=== PATIENT | male | born 1960 | race Asian ===

== ENCOUNTER 2017-04-11 14:22 | Inpatient (IN) | payer MEDICAID, OTHER ==
[~2017-04-11] VITALS: Ht 167.6 cm; Wt 69.9 kg
[2017-04-11] MEDS ORDERED: AMLO-511 PO (15:23)
[2017-04-11] MEDS ORDERED: LEVE500T53 PO (15:23)
[2017-04-11] MEDS ORDERED: IBUP-1547 PO (15:23)
[2017-04-11] MEDS ORDERED: LAMO100 PO (15:23)
[2017-04-11] MEDS ORDERED: ASPI-556 PO (15:23)
[2017-04-11] MEDS ORDERED: VITAD1000 PO (15:23)
[2017-04-11] MEDS ORDERED: BACL10TA PO (15:23)
[2017-04-11] MEDS ORDERED: CARV12 PO (15:23)
[2017-04-11] MEDS ORDERED: BENA20 PO (15:23)
[2017-04-11 17:26] LABS: BASOPHILS % (AUTO) 0.5 % (0.0-2.0); EOSINOPHILS % (AUTO) 3.8 % (1.0-6.0); HEMATOCRIT 52.7 % (41-53); HEMOGLOBIN 17.3 g/dL (13.5-17.5); LYMPHOCYTES # (AUTO) 2.2 K/uL (1.0-4.8); LYMPHOCYTES % (AUTO) 23.5 % (22.0-44.0); MEAN CORPUSCULAR HEMOGLOBIN 25.3 pg (26.0-34.0); MEAN CORPUSCULAR HGB CONC 32.8 G/dL (31.0-37.0); MEAN CORPUSCULAR VOLUME 77 fL (80-100); MONOCYTES # (AUTO) 0.6 K/uL (0.1-1.0); MONOCYTES % (AUTO) 6.5 % (2.0-9.0); NEUTROPHILS # (AUTO) 6.2 K/uL (1.8-7.7); NEUTROPHILS % (AUTO) 65.7 % (40.0-70.0); PLATELET COUNT (AUTO) 242 K/uL (150-450); RED BLOOD CELL COUNT(AUTO) 6.83 MIL/uL (4.50-5.90); RED CELL DISTRIBUTION WIDTH 13.9 % (11.5-14.5); WHITE BLOOD COUNT (AUTO) 9.5 K/uL (4.5-11.0)
[2017-04-11 17:33] LABS: ANION GAP 11 mmol/L (8-16); CALCIUM, TOTAL 9.9 mg/dL (8.8-10.5); CARBON DIOXIDE 25 mmol/L (22-29); CHLORIDE 105 mmol/L (98-107); CREATININE 1.14 mg/dL (0.60-1.30); GLOMERULAR FILTR. RATE CALC > 60 mL/min (>60); POTASSIUM 3.8 mmol/L (3.5-5.1); SODIUM SERUM 141 mmol/L (136-145); UREA NITROGEN, BLOOD 22 mg/dL (7-18)
[2017-04-11 17:40] LABS: ALANINE AMINOTRANSFERASE 18 U/L (12-78); ALBUMIN 3.5 g/dL (3.4-5.0); ASPARTATE AMINOTRANSFERASE 15 U/L (15-37); BILIRUBIN,TOTAL 0.7 mg/dL (0.1-1.0); TOTAL PROTEIN, SERUM 8.3 g/dL (6.4-8.2)
[2017-04-11 18:04] LABS: RBC MORPHOLOGY COMMENT ABNORMAL RBC MORPH
[2017-04-11] MEDS ORDERED: ZOLPIDEM TARTRATE 10 MG TABLET PO PRN (20:00)
[2017-04-11] MEDS ORDERED: HALOPERIDOL 5 MG TABLET PO PRN (20:00)
[2017-04-11] MEDS ORDERED: LORazepam 2 MG TABLET PO PRN (20:00)
[2017-04-11 21:40] VITALS: BP 116/80
[2017-04-11] MEDS ORDERED: PNEUMOCOCCAL VACCINE POLYVALENT 0.5 ML VIAL [PPSV23] IM ONE (23:30)
[2017-04-12 07:17] VITALS: BP 120/72
[2017-04-12 09:31] VITALS: BP 150/96
[2017-04-12] MEDS ORDERED: ALBUTEROL SULFATE HFA 90 MCG/PUFF 8 GM INHALER IH PRN (09:45)
[2017-04-12] MEDS ORDERED: BENZOCAINE/MENTHOL LOZENGE [8 LOZENGES/PACKET] MM PRN (09:45)
[2017-04-12] MEDS ORDERED: BACITRACIN 28.4 GM OINTMENT TP PRN (09:45)
[2017-04-12] MEDS ORDERED: PETROLATUM,WHITE 71 GM JELLY TP PRN (09:45)
[2017-04-12] MEDS ORDERED: LOPERAMIDE HCL 2 MG CAPSULE PO PRN (09:45)
[2017-04-12] MEDS ORDERED: CloNIDine HCL 0.1 MG TABLET PO PRN (09:45)
[2017-04-12] MEDS ORDERED: MAG HYDROX/AL HYDROX/SIMETH ES 30 ML SUSPENSION UDCUP PO PRN (09:45)
[2017-04-12] MEDS ORDERED: MAGNESIUM HYDROXIDE SUSPENSION 30 ML UDCUP PO PRN (09:45)
[2017-04-12] MEDS ORDERED: ONDANSETRON HCL 4 MG TABLET PO PRN (09:45)
[2017-04-12] MEDS ORDERED: ACETAMINOPHEN 325 MG TABLET PO PRN (09:45)
[2017-04-12] MEDS: ASPIRIN 81 MG EC TABLET PO SCH (10:29)
[2017-04-12] MEDS: LevETIRAcetam 500 MG TABLET PO SCH ×3 (10:29→16:40)
[2017-04-12] MEDS: BENAZEPRIL HCL 20 MG TABLET PO SCH (10:29)
[2017-04-12] MEDS: CHOLECALCIFEROL (VIT D3) 1,000 UNITS TABLET PO SCH (10:29)
[2017-04-12] MEDS: AmLODIPine BESYLATE 5 MG TABLET PO SCH (10:29)
[2017-04-12 11:22] VITALS: BP 115/75
[2017-04-12] MEDS: BACLOFEN 10 MG TABLET PO SCH ×2 (11:23→16:41)
[2017-04-12 16:28] VITALS: BP 112/61
[2017-04-12] MEDS: CARVEDILOL 12.5 MG TABLET PO SCH (18:00)
[2017-04-12] MEDS: IBUPROFEN 600 MG TABLET PO PRN (19:12)
[2017-04-13 06:52] VITALS: BP 118/78
[2017-04-13 08:02] LABS: APPEARANCE,URINE CLEAR (CLEAR); GLUCOSE, URINE (UA) NEGATIVE (NEGATIVE); KETONES,URINE NEGATIVE (NEGATIVE); LEUKOCYTE ESTERASE ,URINE NEGATIVE (NEGATIVE); OCCULT BLOOD,URINE NEGATIVE (NEGATIVE); PROTEIN,URINE NEGATIVE (NEGATIVE)
[2017-04-13 08:05] LABS: ADD UA MICROSCOPIC NO
[2017-04-13 08:30] VITALS: BP 135/88
[2017-04-13] MEDS: DOCUSATE SODIUM 100 MG CAPSULE PO SCH (10:00)
[2017-04-13] MEDS: CARVEDILOL 12.5 MG TABLET PO SCH ×2 (10:00→17:09)
[2017-04-13] MEDS: ASPIRIN 81 MG EC TABLET PO SCH (10:00)
[2017-04-13] MEDS: BENAZEPRIL HCL 20 MG TABLET PO SCH (10:01)
[2017-04-13] MEDS: OMEPRAZOLE 20 MG CAPSULE PO SCH (10:01)
[2017-04-13] MEDS: BACLOFEN 10 MG TABLET PO SCH ×2 (10:01→16:05)
[2017-04-13] MEDS: CHOLECALCIFEROL (VIT D3) 1,000 UNITS TABLET PO SCH (10:01)
[2017-04-13] MEDS: AmLODIPine BESYLATE 5 MG TABLET PO SCH (10:01)
[2017-04-13] MEDS: LevETIRAcetam 500 MG TABLET PO SCH ×3 (10:01→16:04)
[2017-04-13 16:31] VITALS: BP 100/66
[2017-04-13] MEDS: IBUPROFEN 600 MG TABLET PO PRN (18:46)
[2017-04-13 18:47] VITALS: BP 105/72
[2017-04-14 02:00] VITALS: BP 128/95
[2017-04-14] MEDS: LevETIRAcetam 500 MG TABLET PO SCH ×3 (09:14→17:06)
[2017-04-14] MEDS: CHOLECALCIFEROL (VIT D3) 1,000 UNITS TABLET PO SCH (09:14)
[2017-04-14] MEDS: BENAZEPRIL HCL 20 MG TABLET PO SCH (09:14)
[2017-04-14] MEDS: AmLODIPine BESYLATE 5 MG TABLET PO SCH (09:15)
[2017-04-14] MEDS: OMEPRAZOLE 20 MG CAPSULE PO SCH (09:15)
[2017-04-14] MEDS: ASPIRIN 81 MG EC TABLET PO SCH (09:15)
[2017-04-14] MEDS: DOCUSATE SODIUM 100 MG CAPSULE PO SCH (09:15)
[2017-04-14] MEDS: BACLOFEN 10 MG TABLET PO SCH ×2 (09:15→17:06)
[2017-04-14] MEDS: CARVEDILOL 12.5 MG TABLET PO SCH ×2 (09:16→17:06)
[2017-04-14 12:25] VITALS: BP 136/103
[2017-04-14] MEDS ORDERED: DSS100 PO (14:39)
[2017-04-14] MEDS ORDERED: OMEP20 PO (14:39)
== END 2017-04-14 18:30 | disposition home or self-care (01) | DRG 751 ==
LOC: EMS 14:27 → 3EI 20:30
PROVIDERS: ADMIT Psychiatry & Neurology Psychiatry; ATTEND Psychiatry & Neurology Psychiatry
DX: F33.2 Major depressive disorder, recurrent severe without psychotic features (principal); R56.9 Unspecified convulsions; I10 Essential (primary) hypertension; I25.10 Atherosclerotic heart disease of native coronary artery without angina pectoris; E55.9 Vitamin D deficiency, unspecified; M19.90 Unspecified osteoarthritis, unspecified site; K21.9 Gastro-esophageal reflux disease without esophagitis; G47.00 Insomnia, unspecified
CPT/HCPCS: 99285; G0480